=== PATIENT | male | born 1970 | race Two or more races ===

== ENCOUNTER 2017-02-01 18:41 | Inpatient (IN) | payer MEDICAID ==
[~2017-02-01] VITALS: Ht 180.3 cm; Wt 80.2 kg
[2017-02-01 20:19] LABS: Hematocrit 41.4 % (41.0-53.0); Hemoglobin 14.2 g/dL (13.5-17.5); Mean Corpuscular Hemoglobin 32.3 pg (28.0-32.0); Mean Corpuscular Hgb Conc. 34.3 g/dL (32.0-36.0); Platelet Count (auto) 232 10^3/uL (140-450); Red Cell Distribution Width 12.5 % (11.8-14.3); White Blood Cell 20.4 10^3/uL (4.4-10.8)
[2017-02-01 20:46] LABS: Basophils % (manual) 0 (0.0-2.0); Blast Cells 0; Eosinophils % (manual) 0 (0-7); Promyelocytes % 0; Reactive Lymphocytes 0
[2017-02-01] MEDS ORDERED: SODIUM CHLORIDE 0.9% 1,000 ML IVB ONE (20:56)
[2017-02-01] MEDS ORDERED: SODIUM CHLORIDE 0.9% 1,000 ML IV ONE (21:00)
[2017-02-01] MEDS ORDERED: AZITHROMYCIN 500MG/ 250ML 250 ML IV ONE (21:00)
[2017-02-01] MEDS ORDERED: cefTRIAXone 1GM/10ml IVPUSH 10 ML IV ONE (21:00)
[2017-02-01 21:11] LABS: Band Neutrophils % (manual) 3; Lymphocytes % (manual) 4 (10.0-50.0); Metamyelocytes % 5; Monocytes % (manual) 2 (0-12); Myelocytes % 3
[2017-02-01 21:31] LABS: Calcium 8.3 mg/dL (8.5-10.1); Magnesium 1.7 mg/dL (1.6-2.6); Potassium 4.2 mmol/L (3.5-5.1)
[2017-02-01 21:34] LABS: BUN/Creatinine Ratio 15.8
[2017-02-01 21:36] LABS: Bilirubin, Total 0.9 mg/dL (0.2-1.0); Total Protein 7.9 g/dL (6.4-8.2)
[2017-02-01 21:47] LABS: INR 1.16 (0.9-1.15); Partial Thromboplastin Time 37.1 sec (22.64-33.71); Prothrombin Time 12.7 sec (9.37-12.3)
[2017-02-01 23:06] LABS: Lactic Acid w/Reflex 2.8 mmol/L (0.4-2.0)
[2017-02-02] VITALS (7 sets, daily range): BP systolic 91–128; BP diastolic 68–82
[2017-02-02] MEDS ORDERED: ALBUTEROL SULF 2.5 MG/0.5ML(0.5%) NEB SOLN NEB PRN (00:30)
[2017-02-02] MEDS ORDERED: ONDANSETRON HCL 4 MG/2 ML VIAL IV PRN (00:30)
[2017-02-02] MEDS: SODIUM CHLORIDE 0.9% 1,000 ML IV SCH ×3 (00:45→20:30)
[2017-02-02 05:18] LABS: Basophils # (auto) 0 uL; Basophils % (auto) 0.1 % (0.0-2.0); Eosinophils # (auto) 0 uL; Hematocrit 36.4 % (41.0-53.0); Hemoglobin 12.4 g/dL (13.5-17.5); Lymphocytes # (auto) 0.5 uL; Lymphocytes % (auto) 2.6 % (10.0-50.0); Mean Corpuscular Hemoglobin 31.9 pg (28.0-32.0); Mean Corpuscular Volume 93.9 fL (80.0-100.0); Monocytes # (auto) 0.2 uL; Neutrophils % (auto) 96.3 % (37.0-80.0); Platelet Count (auto) 196 10^3/uL (140-450); Red Blood Cells 3.87 10^6/uL (4.5-5.90); Red Cell Distribution Width 12.5 % (11.8-14.3); White Blood Cell 19.7 10^3/uL (4.4-10.8)
[2017-02-02 05:38] LABS: Lactic Acid w/Reflex 3.5 mmol/L (0.4-2.0)
[2017-02-02 05:40] LABS: Calcium 7.2 mg/dL (8.5-10.1)
[2017-02-02] MEDS: ALBUTEROL SULF 2.5 MG/0.5ML(0.5%) NEB SOLN NEB SCH ×3 (05:50→19:30)
[2017-02-02] MEDS: IPRATROPIUM BROM 0.5 MG/2.5ML INH SOL NEB SCH ×3 (05:50→19:30)
[2017-02-02] MEDS ORDERED: cefTRIAXone 1GM/10ml IVPUSH 10 ML IV ONE ×2 (11:15)
[2017-02-02] MEDS ORDERED: VANCOMYCIN PER PHARMACY 0 MG IV SCH ×2 (11:15)
[2017-02-02 13:53] LABS: Urine Bacteria NONE SEEN /hpf (None Seen); Urine Blood Negative /uL (Negative); Urine Mucus FEW (None Seen); Urine Specific Gravity 1.017 (1.001-1.035); Urine WBC 1 /hpf (0 - 3)
[2017-02-02 13:59] LABS: Alcohol, Urine < 3.0 mg/dL (0-5); Amphetamine Screen, Urine POSITIVE (NEGATIVE); Barbiturate Scree,Urine NEGATIVE (NEGATIVE); Benzodiazephine Screen, Urine NEGATIVE (NEGATIVE); Cannabinoid Screen, Urine NEGATIVE (NEGATIVE); Cocaine Screen, Urine NEGATIVE (NEGATIVE); Opiate Scree,Urine NEGATIVE (NEGATIVE); Phencyclidine Screen, Urine NEGATIVE (NEGATIVE)
[2017-02-02] MEDS: VANCOMYCIN 1GM/250ML 250 ML IV SCH (14:15)
[2017-02-02] MEDS: AZITHROMYCIN 500MG/ 250ML 250 ML IV SCH (21:58)
[2017-02-03] MEDS: ALBUTEROL SULF 2.5 MG/0.5ML(0.5%) NEB SOLN NEB SCH ×4 (00:19→18:00)
[2017-02-03] MEDS: IPRATROPIUM BROM 0.5 MG/2.5ML INH SOL NEB SCH ×4 (00:19→18:00)
[2017-02-03] MEDS: VANCOMYCIN 1GM/250ML 250 ML IV SCH ×2 (02:10→13:35)
[2017-02-03 05:27] VITALS: BP 119/78
[2017-02-03] MEDS: SODIUM CHLORIDE 0.9% 1,000 ML IV SCH ×2 (05:55→11:27)
[2017-02-03 06:31] LABS: Basophils # (auto) 0 uL; Basophils % (auto) 0.2 % (0.0-2.0); Eosinophils # (auto) 0.1 uL; Eosinophils % (auto) 0.6 % (0.0-7.0); Hematocrit 33.6 % (41.0-53.0); Hemoglobin 11.7 g/dL (13.5-17.5); Lymphocytes # (auto) 1.5 uL; Lymphocytes % (auto) 7.4 % (10.0-50.0); Mean Corpuscular Hemoglobin 32.3 pg (28.0-32.0); Mean Corpuscular Hgb Conc. 34.7 g/dL (32.0-36.0); Mean Corpuscular Volume 93.1 fL (80.0-100.0); Monocytes # (auto) 0.6 uL; Monocytes % (auto) 2.8 % (0.0-12.0); Neutrophils # (auto) 18.4 uL; Platelet Count (auto) 211 10^3/uL (140-450); Red Blood Cells 3.61 10^6/uL (4.5-5.90); Red Cell Distribution Width 12.6 % (11.8-14.3); White Blood Cell 20.6 10^3/uL (4.4-10.8)
[2017-02-03 06:56] LABS: BUN/Creatinine Ratio 18.6; Calcium 7.6 mg/dL (8.5-10.1); Potassium 4.1 mmol/L (3.5-5.1)
[2017-02-03 08:00] VITALS: BP 138/83
[2017-02-03] MEDS: cefTRIAXone 1GM/10ml IVPUSH 10 ML IV SCH (08:55)
[2017-02-03 09:00] VITALS: BP 137/83
[2017-02-03 13:00] VITALS: BP 143/80
[2017-02-03] MEDS: ACYCLOVIR 400 MG TAB PO SCH ×3 (13:35→22:04)
[2017-02-03 16:43] VITALS: BP 147/92
[2017-02-03] MEDS: AZITHROMYCIN 500MG/ 250ML 250 ML IV SCH (22:04)
[2017-02-03 22:59] VITALS: BP 147/97
[2017-02-04] MEDS: ALBUTEROL SULF 2.5 MG/0.5ML(0.5%) NEB SOLN NEB SCH ×5 (00:24→23:50)
[2017-02-04] MEDS: IPRATROPIUM BROM 0.5 MG/2.5ML INH SOL NEB SCH ×5 (00:24→23:50)
[2017-02-04] MEDS: VANCOMYCIN 1GM/250ML 250 ML IV SCH (02:19)
[2017-02-04] MEDS: SODIUM CHLORIDE 0.9% 1,000 ML IV SCH (02:19)
[2017-02-04 05:00] VITALS: BP 128/82
[2017-02-04] MEDS: ACYCLOVIR 400 MG TAB PO SCH ×5 (06:33→22:08)
[2017-02-04 06:53] LABS: Basophils # (auto) 0 uL; Basophils % (auto) 0.3 % (0.0-2.0); Eosinophils # (auto) 0.2 uL; Eosinophils % (auto) 1.6 % (0.0-7.0); Hematocrit 35.2 % (41.0-53.0); Hemoglobin 11.9 g/dL (13.5-17.5); Lymphocytes # (auto) 1.7 uL; Mean Corpuscular Hemoglobin 31.4 pg (28.0-32.0); Mean Corpuscular Hgb Conc. 33.7 g/dL (32.0-36.0); Monocytes # (auto) 1.4 uL; Monocytes % (auto) 9.6 % (0.0-12.0); Neutrophils # (auto) 10.8 uL; Neutrophils % (auto) 76.5 % (37.0-80.0); Nucleated Red Blood Cells % 0.1 %; Platelet Count (auto) 272 10^3/uL (140-450); Red Blood Cells 3.79 10^6/uL (4.5-5.90); Red Cell Distribution Width 12.8 % (11.8-14.3); White Blood Cell 14.2 10^3/uL (4.4-10.8)
[2017-02-04 07:12] LABS: BUN/Creatinine Ratio 18.9; Calcium 8.2 mg/dL (8.5-10.1)
[2017-02-04 09:15] VITALS: BP 140/92
[2017-02-04] MEDS: cefTRIAXone 1GM/10ml IVPUSH 10 ML IV SCH (09:28)
[2017-02-04] MEDS ORDERED: VANCOMYCIN 1,250 MG in D5W 5% 250 ML IV SCH (10:00)
[2017-02-04 12:20] VITALS: BP 152/94
[2017-02-04 13:32] VITALS: BP 123/74
[2017-02-04 17:04] VITALS: BP 146/94
[2017-02-04] MEDS: VANCOMYCIN 1,250 MG in SODIUM CHL 0.9% 250 ML IV SCH (17:41)
[2017-02-04] MEDS: ACETAMINOPHEN 500 MG TAB PO PRN (20:25)
[2017-02-04 21:59] VITALS: BP 135/68
[2017-02-04] MEDS: AZITHROMYCIN 500MG/ 250ML 250 ML IV SCH (22:08)
[2017-02-04] MEDS: HYDROcodone-ACET 5/325MG TAB PO PRN (22:34)
[2017-02-05] MEDS: VANCOMYCIN 1,250 MG in SODIUM CHL 0.9% 250 ML IV SCH ×2 (01:57→09:28)
[2017-02-05 04:59] VITALS: BP 137/90
[2017-02-05 06:32] LABS: Basophils # (auto) 0.1 uL; Basophils % (auto) 0.5 % (0.0-2.0); Eosinophils # (auto) 0.3 uL; Eosinophils % (auto) 2.1 % (0.0-7.0); Hematocrit 37.8 % (41.0-53.0); Hemoglobin 13.2 g/dL (13.5-17.5); Lymphocytes # (auto) 1.7 uL; Lymphocytes % (auto) 13.9 % (10.0-50.0); Mean Corpuscular Hgb Conc. 34.8 g/dL (32.0-36.0); Mean Corpuscular Volume 91.8 fL (80.0-100.0); Monocytes # (auto) 1.7 uL; Monocytes % (auto) 13.8 % (0.0-12.0); Neutrophils # (auto) 8.4 uL; Neutrophils % (auto) 69.7 % (37.0-80.0); Nucleated Red Blood Cells % 0.1 %; Platelet Count (auto) 351 10^3/uL (140-450); Red Blood Cells 4.12 10^6/uL (4.5-5.90); Red Cell Distribution Width 12.8 % (11.8-14.3)
[2017-02-05] MEDS: ACYCLOVIR 400 MG TAB PO SCH ×5 (06:42→21:32)
[2017-02-05 06:55] LABS: Albumin 2.1 g/dL (3.4-5.0); BUN/Creatinine Ratio 18.5; Calcium 8.4 mg/dL (8.5-10.1)
[2017-02-05 06:58] LABS: Bilirubin, Total 0.4 mg/dL (0.2-1.0); Total Protein 7.1 g/dL (6.4-8.2)
[2017-02-05] MEDS: ALBUTEROL SULF 2.5 MG/0.5ML(0.5%) NEB SOLN NEB SCH ×3 (07:04→20:00)
[2017-02-05] MEDS: IPRATROPIUM BROM 0.5 MG/2.5ML INH SOL NEB SCH ×3 (07:04→20:00)
[2017-02-05 08:00] VITALS: BP 139/73
[2017-02-05] MEDS: cefTRIAXone 1GM/10ml IVPUSH 10 ML IV SCH (08:31)
[2017-02-05 12:12] VITALS: BP 138/91
[2017-02-05] MEDS: HYDROcodone-ACET 5/325MG TAB PO PRN (12:47)
[2017-02-05 16:50] VITALS: BP 137/89
[2017-02-05] MEDS: VANCOMYCIN 1,500 MG in D5W 5% 250 ML IV SCH (21:06)
[2017-02-05] MEDS: ACETAMINOPHEN 500 MG TAB PO PRN (21:32)
[2017-02-05 21:59] VITALS: BP 146/90
[2017-02-06] VITALS (7 sets, daily range): BP systolic 116–138; BP diastolic 76–85
[2017-02-06 05:59] LABS: Basophils # (auto) 0.1 uL; Basophils % (auto) 0.5 % (0.0-2.0); Eosinophils # (auto) 0.3 uL; Hemoglobin 13.8 g/dL (13.5-17.5); Lymphocytes # (auto) 1.9 uL; Mean Corpuscular Hemoglobin 31.8 pg (28.0-32.0); Mean Corpuscular Hgb Conc. 34.5 g/dL (32.0-36.0); Mean Corpuscular Volume 92.3 fL (80.0-100.0); Neutrophils # (auto) 10.2 uL; Neutrophils % (auto) 70.5 % (37.0-80.0); Platelet Count (auto) 414 10^3/uL (140-450); Red Blood Cells 4.34 10^6/uL (4.5-5.90); Red Cell Distribution Width 12.5 % (11.8-14.3); White Blood Cell 14.5 10^3/uL (4.4-10.8)
[2017-02-06] MEDS: ACYCLOVIR 400 MG TAB PO SCH ×5 (05:59→22:38)
[2017-02-06 06:24] LABS: Albumin 2.1 g/dL (3.4-5.0); Bilirubin, Total 0.4 mg/dL (0.2-1.0); Calcium 8.7 mg/dL (8.5-10.1); Potassium 4.4 mmol/L (3.5-5.1); Total Protein 7.7 g/dL (6.4-8.2)
[2017-02-06] MEDS: ALBUTEROL SULF 2.5 MG/0.5ML(0.5%) NEB SOLN NEB SCH ×4 (07:01→18:00)
[2017-02-06] MEDS: IPRATROPIUM BROM 0.5 MG/2.5ML INH SOL NEB SCH ×4 (07:01→18:00)
[2017-02-06] MEDS: VANCOMYCIN 1,500 MG in D5W 5% 250 ML IV SCH ×2 (09:38→20:36)
[2017-02-06] MEDS: cefTRIAXone 1GM/10ml IVPUSH 10 ML IV SCH (09:39)
[2017-02-06] MEDS: AZITHROMYCIN 250 MG TAB PO SCH (09:39)
[2017-02-06] MEDS ORDERED: prednisoLONE 15 MG/5 ML ORAL UD PO ONE (18:45)
[2017-02-06] MEDS: ACETAMINOPHEN 500 MG TAB PO PRN (20:36)
[2017-02-06] MEDS: TEMAZEPAM 15 MG CAP PO PRN (22:38)
[2017-02-07] VITALS (7 sets, daily range): BP systolic 113–129; BP diastolic 76–83
[2017-02-07] MEDS: ACYCLOVIR 400 MG TAB PO SCH ×5 (06:04→22:09)
[2017-02-07 06:26] LABS: Basophils # (auto) 0.1 uL; Basophils % (auto) 0.6 % (0.0-2.0); Eosinophils # (auto) 0.3 uL; Eosinophils % (auto) 1.9 % (0.0-7.0); Hemoglobin 14.1 g/dL (13.5-17.5)
[2017-02-07 06:28] LABS: Hematocrit 40.9 % (41.0-53.0); Lymphocytes % (auto) 11.7 % (10.0-50.0); Mean Corpuscular Hemoglobin 31.8 pg (28.0-32.0); Mean Corpuscular Hgb Conc. 34.5 g/dL (32.0-36.0); Mean Corpuscular Volume 92.3 fL (80.0-100.0); Monocytes # (auto) 1.8 uL; Neutrophils # (auto) 12.5 uL; Neutrophils % (auto) 74.8 % (37.0-80.0); Platelet Count (auto) 462 10^3/uL (140-450); Red Blood Cells 4.44 10^6/uL (4.5-5.90); Red Cell Distribution Width 12.5 % (11.8-14.3); White Blood Cell 16.7 10^3/uL (4.4-10.8)
[2017-02-07] MEDS: ALBUTEROL SULF 2.5 MG/0.5ML(0.5%) NEB SOLN NEB SCH ×3 (06:37→12:00)
[2017-02-07] MEDS: IPRATROPIUM BROM 0.5 MG/2.5ML INH SOL NEB SCH ×3 (06:37→12:00)
[2017-02-07 07:34] LABS: Albumin 2.4 g/dL (3.4-5.0); BUN/Creatinine Ratio 22.3; Bilirubin, Total 0.6 mg/dL (0.2-1.0); Calcium 9.1 mg/dL (8.5-10.1); Magnesium 2.5 mg/dL (1.6-2.6); Phosphorus 4.4 mg/dL (2.5-4.90); Potassium 4.6 mmol/L (3.5-5.1); Total Protein 8.2 g/dL (6.4-8.2)
[2017-02-07] MEDS: AZITHROMYCIN 250 MG TAB PO SCH (09:01)
[2017-02-07] MEDS: cefTRIAXone 1GM/10ml IVPUSH 10 ML IV SCH (09:11)
[2017-02-07] MEDS: VANCOMYCIN 1,500 MG in D5W 5% 250 ML IV SCH (09:11)
[2017-02-07] MEDS: ACETAMINOPHEN 500 MG TAB PO PRN (15:41)
[2017-02-07] MEDS: ceFAZolin 1GM/50ML 50 ML IV SCH (22:09)
[2017-02-07] MEDS: TEMAZEPAM 15 MG CAP PO PRN (22:30)
[2017-02-08 05:00] VITALS: BP 115/71
[2017-02-08] MEDS: ACYCLOVIR 400 MG TAB PO SCH ×3 (06:18→13:31)
[2017-02-08] MEDS: ceFAZolin 1GM/50ML 50 ML IV SCH (06:18)
[2017-02-08 06:25] LABS: Hemoglobin 13.7 g/dL (13.5-17.5); Red Cell Distribution Width 12.5 % (11.8-14.3)
[2017-02-08 06:27] LABS: Mean Corpuscular Hemoglobin 32.4 pg (28.0-32.0); Mean Corpuscular Volume 92.5 fL (80.0-100.0); Platelet Count (auto) 507 10^3/uL (140-450); Red Blood Cells 4.22 10^6/uL (4.5-5.90)
[2017-02-08 06:29] LABS: Basophils % (manual) 0 (0.0-2.0); Blast Cells 0; Promyelocytes % 0; Reactive Lymphocytes 0
[2017-02-08 06:51] LABS: Albumin 2.3 g/dL (3.4-5.0); BUN/Creatinine Ratio 22.6; Bilirubin, Total 0.2 mg/dL (0.2-1.0); Calcium 8.6 mg/dL (8.5-10.1); Magnesium 2.6 mg/dL (1.6-2.6); Phosphorus 4.4 mg/dL (2.5-4.90); Potassium 4.3 mmol/L (3.5-5.1); Total Protein 7.9 g/dL (6.4-8.2)
[2017-02-08 06:56] LABS: Band Neutrophils % (manual) 4; Eosinophils % (manual) 3 (0-7); Lymphocytes % (manual) 30 (10.0-50.0); Metamyelocytes % 4; Monocytes % (manual) 8 (0-12); Myelocytes % 1
[2017-02-08] MEDS: cefTRIAXone 1GM/10ml IVPUSH 10 ML IV SCH (08:47)
[2017-02-08 09:00] VITALS: BP 104/79
[2017-02-08 12:55] VITALS: BP 134/86
[2017-02-08 13:04] VITALS: BP 134/86
[2017-02-09] MEDS ORDERED: LEVOFLOXACIN 500 MG TAB PO SCH (10:00)
== END 2017-02-08 13:28 | disposition home or self-care (01) | DRG 720 ==
LOC: ER 18:41 → OVERFLOW 18:42 → EAST 02-02 03:05 → TELE-EAST 02-02 15:52
PROVIDERS: ADMIT Nurse Practitioner Family; ATTEND Internal Medicine
PROC: 0W9B3ZZ Drainage of Left Pleural Cavity, Percutaneous Approach (ICD-10-PCS; principal; 2017-02-03)
DX: A41.59 Other Gram-negative sepsis (principal); N17.0 Acute kidney failure with tubular necrosis; J15.211 Pneumonia due to Methicillin susceptible Staphylococcus aureus; J90 Pleural effusion, not elsewhere classified; E44.0 Moderate protein-calorie malnutrition; J44.0 Chronic obstructive pulmonary disease with (acute) lower respiratory infection; E86.0 Dehydration; F15.10 Other stimulant abuse, uncomplicated; F17.210 Nicotine dependence, cigarettes, uncomplicated; F19.10 Other psychoactive substance abuse, uncomplicated; J44.1 Chronic obstructive pulmonary disease with (acute) exacerbation; Z82.49 Family history of ischemic heart disease and other diseases of the circulatory system; Z68.24 Body mass index [BMI] 24.0-24.9, adult
CPT/HCPCS: 32555; 36415; 71010; 71020; 71250; 76942; 80048; 80053; 80202; 80307; 81001; 83036; 83605; 83735; 84100; 84484; 85007; 85025; 85027; 85610; 85730; 87040; 87070; 87077; 87186; 87205; 93005; 94640; 94761; 96365; 96366; 96375; J0690; J7060

== ENCOUNTER 2017-10-03 22:34 | Emergency (ER) | payer SELFPAY ==
[~2017-10-03] VITALS: Ht 177.8 cm; Wt 88.5 kg
[2017-10-04 01:49] VITALS: BP 142/94
[2017-10-04] MEDS ORDERED: KETOROLAC TROMETH 60MG/2ML VIAL IM ONE (02:15)
[2017-10-04] MEDS ORDERED: HYDROcodone-ACET 10/325MG TAB PO ONE (02:15)
[2017-10-04] MEDS ORDERED: KETOROLAC TROMETH 30 MG/ML 1ML VIAL IV ONE (02:45)
== END 2017-10-04 03:37 | disposition home or self-care (01) ==
LOC: ER 22:42
DX: S06.0X1A Concussion with loss of consciousness of 30 minutes or less, initial encounter (principal); S43.402A Unspecified sprain of left shoulder joint, initial encounter; S43.401A Unspecified sprain of right shoulder joint, initial encounter; S13.9XXA Sprain of joints and ligaments of unspecified parts of neck, initial encounter; F17.210 Nicotine dependence, cigarettes, uncomplicated; V43.52XA Car driver injured in collision with other type car in traffic accident, initial encounter; Y93.89 Activity, other specified; Y92.488 Other paved roadways as the place of occurrence of the external cause; Y99.8 Other external cause status
CPT/HCPCS: 70450; 72125; 73030; 96374; 99284; J7030; J1885